=== PATIENT | male | born 1970 | race Caucasian/White ===

== ENCOUNTER 2017-03-02 21:52 | Emergency (ER) | payer SELFPAY ==
[2017-03-02 22:06] VITALS: TEMP 98.6; BMI 25.9
--- NOTE | 2017-03-02 23:17 | PDOC ---
History of Present Illness - General History Source: Patient Exam Limitations: No Limitations - History of Present Illness Travel History: No Timing/Duration: reports: intermittent <Katya Calderon - Last Filed: 03/03/17 04:07> <Charla Whittington - Last Filed: 03/07/17 07:24> - General Chief Complaint: Pain, Acute Stated Complaint: PAIN Time Seen by Provider: 03/02/17 22:12 Past History - Travel Traveled outside of the country in the last 30 days: No Close contact w/someone who was outside of country & ill: No - Past Medical History Other medical history: arthritis - Immunization History Immunization Up to Date: Yes - Psycho/Social/Smoking Cessation Hx Suicidal Ideation: No Smoking History: Former smoker Have you smoked in the past 12 months: Yes If you are a former smoker, when did you quit?: 02/21/17 Information on smoking cessation initiated: No Hx Alcohol Use: No Drug/Substance Use Hx: No <Katya Calderon - Last Filed: 03/03/17 04:07> <Charla Whittington - Last Filed: 03/07/17 07:24> - Past Medical History Allergies/Adverse Reactions: Allergies Allergy/AdvReac Type Severity Reaction Status Date / Time No Known Allergies Allergy Verified 03/02/17 21:54 Home Medications: Ambulatory Orders NK [No Known Home Medication] 03/02/17 Review of Systems - Review of Systems Able to Perform ROS?: Yes Comments:: 03/03/17 04:07 CONSTITUTIONAL: Absent: fever, chills, diaphoresis, generalized weakness, malaise, loss of appetite HEENT: Absent: rhinorrhea, nasal congestion, throat pain, throat swelling, difficulty swallowing, mouth swelling, ear pain, eye pain, visual Changes CARDIOVASCULAR: Absent: chest pain, loss of consciousness, palpitations, irregular heart rate, peripheral edema RESPIRATORY: Absent: cough, shortness of breath, dyspnea with exertion, orthopnea, wheezing, stridor, hemoptysis GASTROINTESTINAL: +RLQ pain Absent: abdominal distension, nausea, vomiting, diarrhea, constipation, melena, hematochezia GENITOURINARY: Absent: dysuria, frequency, urgency, hesitancy, hematuria, flank pain, genital pain MUSCULOSKELETAL: Absent: myalgia, arthralgia, joint swelling SKIN: Absent: rash, itching, pallor HEMATOLOGIC/IMMUNOLOGIC: Absent: easy bleeding, easy bruising, lymphadenopathy, frequent infections ENDOCRINE: Absent: unexplained weight gain, unexplained weight loss, heat intolerance, cold intolerance NEUROLOGIC: Absent: headache, focal weakness or paresthesias, dizziness, unsteady gait, seizure, mental status changes, bladder or bowel incontinence PSYCHIATRIC: Absent: anxiety, depression, suicidal or homicidal ideation, hallucinations. Is the patient limited Polish proficient: No <Katya Calderon - Last Filed: 03/03/17 04:07> *Physical Exam - Vital Signs Last Vital Signs Temp Pulse Resp BP Pulse Ox 98.6 F 73 20 150/104 99 03/02/17 21:54 03/02/17 21:54 03/02/17 21:54 03/02/17 21:54 03/02/17 21:54 - Physical Exam Comments: 03/03/17 04:08 GENERAL: Well developed, well nourished. Awake and alert. No acute distress. HEENT: Normocephalic, atraumatic. PERRLA, EOMI. No conjunctival pallor. Sclera are non- icteric. Moist mucous membranes. Oropharynx is clear. NECK: Supple. Full ROM. No JVD. Carotid pulses 2+ and symmetric, without bruits. No thyromegaly. No lymphadenopathy. CARDIOVASCULAR: Regular rate and rhythm. No murmurs, rubs, or gallops. Distal pulses are 2+ and symmetric. PULMONARY: No evidence of respiratory distress. Lungs clear to auscultation bilaterally. No wheezing, rales or rhonchi. ABDOMINAL: +RLQ pain on deep palp Soft. Non-distended. No rebound or guarding. No organomegaly. Normoactive bowel sounds. hemorrhoids MUSCULOSKELETAL Normal range of motion at all joints. No bony deformities or tenderness. No CVA tenderness. EXTREMITIES: No cyanosis. No clubbing. No edema. No calf tenderness. SKIN: Warm and dry. Normal capillary refill. No rashes. No jaundice. NEUROLOGICAL: Alert, awake, appropriate. Cranial nerves 2-12 intact. No deficits to light touch and temperature in face, upper extremities and lower extremities. No motor deficits in the in face, upper extremities and lower extremities. Normoreflexic in the upper and lower extremities. Normal speech. Toes are down- going bilaterally. Gait is normal without ataxia. PSYCHIATRIC: Cooperative. Good eye contact. Appropriate mood and affect. <Katya Calderon - Last Filed: 03/03/17 04:07> - Vital Signs Last Vital Signs Temp Pulse Resp BP Pulse Ox 98.6 F 80 18 127/63 98 03/02/17 21:54 03/03/17 04:52 03/03/17 04:52 03/03/17 04:52 03/03/17 04:52 <Charla Whittington - Last Filed: 03/07/17 07:24> ED Treatment Course - LABORATORY CBC & Chemistry Diagram: 03/02/17 00:10 03/02/17 00:10 <Katya Calderon - Last Filed: 03/03/17 04:07> - LABORATORY CBC & Chemistry Diagram: 03/02/17 00:10 03/02/17 00:10 - ADDITIONAL ORDERS Additional order review: 03/02/17 00:10 RBC 4.59 MCV 95.5 MCHC 32.9 RDW 13.4 MPV 7.8 Neutrophils % 45.1 Lymphocytes % 40.3 H Monocytes % 11.5 H Eosinophils % 2.1 Basophils % 1.0 - Medications Given in the ED: ED Medications Discontinued Medications Generic Name Dose Route Start Last Admin Trade Name Freq PRN Reason Stop Dose Admin Sodium Chloride 1,000 mls @ 1,000 mls/hr 03/02/17 23:59 03/03/17 00:26 Normal Saline - IV 03/03/17 00:58 1,000 mls/hr ASDIR STA Administration <Charla Whittington - Last Filed: 03/07/17 07:24> Progress Note - Progress Note Progress Note: 47-year-old male presents to the emergency department with his friend complaining of right lower quadrant abdominal discomfort with possible hemorrhoids. Patient states that abdominal discomfort is described as 4/10 dull nonradiating intermittent discomfort. Patient had a hemorrhoidectomy approximately 15 years ago and wondered to make sure that it did not recur. Patient states he did not have a bowel movement 2 days but did have flatulence. He denies nausea/vomiting, fever/chills, diarrhea, chest pain, shortness of breath, flank pains, urinary symptoms. Digital exam performed: No external or internal hemorrhoids appreciated. <Katya Calderon - Last Filed: 03/03/17 04:07> *DC/Admit/Observation/Transfer - Discharge Dispostion Admit: No <Katya Calderon - Last Filed: 03/03/17 04:07> - Attestations Physician Attestion: I reviewed the case with the mid-level practitioner and agree with the mid- level practitioner's assessment, diagnosis and disposition. <Charla Whittington - Last Filed: 03/07/17 07:24> Diagnosis at time of Disposition: Abdominal pain Qualifiers: Abdominal location: right lower quadrant Qualified Code(s): R10.31 - Right lower quadrant pain - Discharge Dispostion Disposition: HOME Condition at time of disposition: Stable - Referrals Referrals: Broderick Streeter MD [Staff Physician] - - Patient Instructions Printed Discharge Instructions: DI for Abdominal Pain-Adult Additional Instructions: Follow-up with the oriental rug stretcher listed on your discharge and your primary care physician. Return back to the emergency department for severe/persistent or worsening symptoms.
[2017-03-02] MEDS ORDERED: SODIUM CHLORIDE 1,000 ML IV STA (23:59)
[2017-03-03] MEDS ORDERED: ONDANSETRON 4 MG/2 ML VIAL ONE (00:15)
[2017-03-03] MEDS ORDERED: morphine CARPU-JECT 2 MG/1 ML DISP.SYRIN ONE (00:17)
[2017-03-03 00:32] LABS: EOSINOPHIL 2.1 % (0-4.5); MCH 31.5 pg (25.7-33.7); MCHC 32.9 g/dl (32.0-35.9); MEAN CELL VOLUME 95.5 fl (80-96); MEAN PLT VOLUME 7.8 fl (7.5-11.1); NEUTROPHILS 45.1 % (42.8-82.8); PLATELET COUNT 388 K/MM3 (134-434); RDW 13.4 % (11.9-15.9); WHITE BLOOD COUNT 8.2 K/mm3 (4.0-10.0)
[2017-03-03 00:59] LABS: ALBUMIN 3.7 g/dl (3.4-5.0); ALK PHOS 59 U/L (45-117); ANION GAP 9 (8-16); BILIRUBIN,TOTAL 0.3 mg/dL (0.2-1.0); CALCIUM 8.8 mg/dL (8.5-10.1); CO2 28 mmol/L (21-32); COCKROFT - GAULT 84.71; CREATININE 0.9 mg/dL (0.7-1.3); GLUCOSE,RANDOM 96 mg/dL (74-106); SGOT/AST 20 U/L (15-37); SGPT/ALT 33 U/L (12-78); TOT PROT 7.4 g/dl (6.4-8.2)
[2017-03-03 04:53] VITALS: BP 127/63; PULSE 80
== END 2017-03-03 04:50 | disposition home or self-care (01) ==
LOC: JER 21:52
PROC: 3E0337Z Introduction of Electrolytic and Water Balance Substance into Peripheral Vein, Percutaneous Approach (ICD-10-PCS; principal; 2017-03-02)
DX: R10.31 Right lower quadrant pain (principal)
CPT/HCPCS: 36415; 74000-TC; 74177-TC; 80053; 85025; 99282-25